=== PATIENT | male | born 1955 | race Caucasian/White ===

== ENCOUNTER 2017-11-16 09:23 | Emergency (ER) | payer OTHER ==
[~2017-11-16] VITALS: Ht 177.8 cm; Wt 70.3 kg
[2017-11-16] MEDS ORDERED: BP MED PO (10:15)
[2017-11-16] MEDS ORDERED: ATOR-2 PO (10:15)
[2017-11-16] MEDS ORDERED: HYDROcodone/APAP 5/325 TABLET ONE (10:16)
[2017-11-16] MEDS ORDERED: HYDROcodone/APAP 5/325 TABLET PO ONE (10:30)
[2017-11-16 10:59] VITALS: BP 102/62
== END 2017-11-16 11:56 | disposition home or self-care (01) ==
LOC: ED 11:50
DX: S52.571A Other intraarticular fracture of lower end of right radius, initial encounter for closed fracture (principal); Z88.6 Allergy status to analgesic agent; W01.0XXA Fall on same level from slipping, tripping and stumbling without subsequent striking against object, initial encounter; Y93.89 Activity, other specified; Y99.8 Other external cause status; Y92.89 Other specified places as the place of occurrence of the external cause
CPT/HCPCS: 29125; 99284